=== PATIENT | male | born 1950 ===

== ENCOUNTER 2017-12-26 05:51 | Day surgery (SDC) | payer MEDICARE, OTHER ==
[2017-12-10 12:17] VITALS: BMI 21.4
[2017-12-26] MEDS ORDERED: Lactated Ringer's 500 ML IV ONE ×2 (06:08→06:49)
[2017-12-26] MEDS ORDERED: Phenylephrine 2.5% Opht Soln OD SCH (06:15)
[2017-12-26] MEDS ORDERED: Tropicamide 0.5% Opht Sol OD SCH (06:15)
[2017-12-26] MEDS: Lidocaine 2% MPF (5 ml) Inj ONE ×3 (07:44→07:55)
[2017-12-26] MEDS: Povidone Iodine Ophthalmic 5% Soln ONE ×3 (07:44→07:56)
[2017-12-26] MEDS: Tetracaine 0.5% Ophth (OR ONLY) ONE ×2 (07:45→07:55)
[2017-12-26] MEDS: Hyaluronidase Human, Recombi 150 U/ML VIAL ONE ×3 (07:45→07:55)
[2017-12-26] MEDS: Carbachol 0.01% IO ONE ×2 (07:46→07:58)
[2017-12-26] MEDS: Chondroitin/Hyaluronate Opth Syringe KIT (0.55 ml-0.5 ml) IO ONE ×2 (07:47→08:00)
[2017-12-26] MEDS ORDERED: Midazolam 2 MG/2 ML VIAL ONE (07:53)
[2017-12-26] MEDS ORDERED: Propofol 10 mg/ml Inj (20 ML) ONE (07:53)
[2017-12-26] MEDS: Tobramycin/Dexamethasone OPHT OINT ONE ×2 (08:09→08:30)
[2017-12-26 10:27] VITALS: O2SAT 100
[2017-12-26 10:28] VITALS: BP 139/62; PULSE 58; RESP 16; TEMP 97.7
--- NOTE | 2017-12-26 20:16 | OP ---
PROCEDURE DATE: 12/26/2017 PREOPERATIVE DIAGNOSIS: Complex hypermature cataract, right eye. POSTOPERATIVE DIAGNOSIS: Complex hypermature cataract, right eye. PROCEDURE: Complex cataract surgery for morgagnian hypermature cataract, right eye, using VisionBlue. SURGEON: Esteban Root MD ANESTHESIA: Retrobulbar block. COMPLICATIONS: None. ESTIMATED BLOOD LOSS: Zero. DESCRIPTION OF PROCEDURE: The patient was brought to the operating room and properly identified. Anesthesia staff administered intravenous sedation and retrobulbar block was given to the surgical eye. The patient was then prepped and draped in the usual sterile fashion. Attention was turned to the surgical eye. A lid speculum was placed into interpalpebral fissure. Sitting temporally, two paracentesis incisions were made. The anterior chamber was filled with viscoelastic and a triplanar clear corneal incision was made. Using a cystitome, anterior capsular leaflet was created. Utrata forceps were used to create a continuous curvilinear capsulorrhexis. Balanced salt solution on a cannula was used to hydrodissect and hydrodelineate the lens. The lens was then phacoemulsified with no complications. Automated irrigation and aspiration was used to remove the cortex. Viscoelastic was used to deepen the anterior chamber. The lens was placed in the capsular bag. Automated irrigation and aspiration was used to remove the viscoelastic. The anterior chamber was filled with Miochol. The wounds were hydrated with balanced salt solution. There was noted to be no leak at the end of the case and the lens was well positioned. The lid speculum was removed. The eye was given antibiotics and steroids and covered with a patch and shield. The patient was returned to the recovery room in stable condition. ADDENDUM: VisionBlue was used to highlight the anterior capsule due to the hypermaturity of the lens. A careful continuous capsulorhexis was then created with no complications. Esteban Root MD
== END 2017-12-26 09:55 | disposition home or self-care (01) ==
LOC: C.SDS 05:51
PROVIDERS: ATTEND Ophthalmology
DX: H25.20 Age-related cataract, morgagnian type, unspecified eye (principal); E11.9 Type 2 diabetes mellitus without complications
CPT/HCPCS: 66982; 82948; J2704; J3470; J7120; V2632

== ENCOUNTER 2018-01-30 06:20 | Day surgery (SDC) | payer MEDICARE, OTHER ==
[2017-12-10 12:17] VITALS: BMI 21.4
[~2018-01-30 06:20] MED LIST: Lactated Ringer's 500 ML IV ONE; Phenylephrine 2.5% Opht Soln OS SCH; Tropicamide 0.5% Opht Sol OS SCH
[2018-01-30] MEDS ORDERED: Povidone Iodine Ophthalmic 5% Soln ONE (07:23)
[2018-01-30] MEDS ORDERED: Tobramycin/Dexamethasone OPHT OINT ONE (07:24)
[2018-01-30] MEDS ORDERED: Carbachol 0.01% IO ONE (07:24)
[2018-01-30] MEDS ORDERED: Lidocaine 2% MPF (5 ml) Inj ONE (07:25)
[2018-01-30] MEDS ORDERED: Lactated Ringer's 500 ML IV ONE (07:25)
[2018-01-30] MEDS ORDERED: Hyaluronidase Human, Recombi 150 U/ML VIAL ONE (07:25)
[2018-01-30] MEDS ORDERED: Chondroitin/Hyaluronate Opth Syringe KIT (0.55 ml-0.5 ml) IO ONE (07:25)
[2018-01-30] MEDS ORDERED: Midazolam 2 MG/2 ML VIAL ONE (09:42)
[2018-01-30] MEDS ORDERED: Propofol 10 mg/ml Inj (20 ML) ONE (09:42)
[2018-01-30 12:49] VITALS: PULSE 78; RESP 18
[2018-01-30 12:54] VITALS: BP 115/61; TEMP 97.6; O2SAT 100
--- NOTE | 2018-01-31 16:26 | OP ---
PROCEDURE DATE: 01/30/2018 PREOPERATIVE DIAGNOSIS: Matured cataract, left eye. POSTOPERATIVE DIAGNOSIS: Matured cataract, left eye. PROCEDURE: Cataract extraction and lens implant, left eye. SURGEON: Esteban Root MD ANESTHESIA: Retrobulbar block. ESTIMATED BLOOD LOSS: Zero. COMPLICATIONS: None. DESCRIPTION OF PROCEDURE: The patient was brought to the operating room and properly identified. Anesthesia staff administered intravenous sedation and retrobulbar block was given to the surgical eye. The patient was then prepped and draped in the usual sterile fashion. Attention was turned to the surgical eye. A lid speculum was placed into interpalpebral fissure. Sitting temporally, two paracentesis incisions were made. The anterior chamber was filled with viscoelastic and a triplanar clear corneal incision was made. Using a cystitome, anterior capsular leaflet was created. Utrata forceps were used to create a continuous curvilinear capsulorrhexis. Balanced salt solution on a cannula was used to hydrodissect and hydrodelineate the lens. The lens was then phacoemulsified with no complications. Automated irrigation and aspiration was used to remove the cortex. Viscoelastic was used to deepen the anterior chamber. The lens was placed in the capsular bag. Automated irrigation and aspiration was used to remove the viscoelastic. The anterior chamber was filled with Miochol. The wounds were hydrated with balanced salt solution. There was noted to be no leak at the end of the case and the lens was well positioned. The lid speculum was removed. The eye was given antibiotics and steroids and covered with a patch and shield. The patient was returned to the recovery room in stable condition. Esteban Root MD
== END 2018-01-30 11:18 | disposition home or self-care (01) ==
LOC: C.SDS 06:20
PROVIDERS: ATTEND Ophthalmology
DX: H25.12 Age-related nuclear cataract, left eye (principal)
CPT/HCPCS: 66984; J2250; J2704; J3470; J7120; V2632